=== PATIENT | female | born 1990 | race Two or more races ===

== ENCOUNTER → 2018-10-22 | Outpatient (CLI) | payer OTHER ==
--- NOTE | 2018-10-22 17:36 | KCIC ---
Thyroid ultrasound HISTORY: Acquired hypothyroidism. FINDINGS: The right thyroid measures 4.8 x 1.8 x 1.8 cm. Homogeneous echotexture. Vascularity appears within normal limits. No discrete mass. Thyroid isthmus measures 3 mm. Left thyroid measures 4.6 x 1.7 x 1.7 cm. There is a solid nodule in the upper pole of the left thyroid measuring 1.3 x 0.9 x 0.9 cm. Mild peripheral vascularity but no internal vascularity is identified at the nodule. IMPRESSION: Solid left thyroid nodule measures 13 mm. Electronically signed by: Jesus Melchor MD (10/22/2018 5:33 PM) [id number]
== END | disposition home or self-care (01) ==
LOC: KCIC US 15:33
PROVIDERS: ATTEND Internal Medicine
DX: E04.1 Nontoxic single thyroid nodule (principal); E03.9 Hypothyroidism, unspecified
CPT/HCPCS: 76536